=== PATIENT | male | born 1980 | race Caucasian/White ===

== ENCOUNTER 2023-01-13 14:38 | Outpatient (CLI) | payer BC, SELFPAY | END 2023-01-13 14:39 | disposition home or self-care (01) | LOC: FRMREF 14:39 | PROVIDERS: PCP Family Medicine; Visit Provider Family Medicine | DX: Z01.810 Encounter for preprocedural cardiovascular examination (principal) | CPT/HCPCS: 80048 ==

== ENCOUNTER 2023-01-15 07:43 | Outpatient (CLI) | payer BC, SELFPAY ==
--- NOTE | 2023-01-15 07:55 | W.ANESCHARGE ---
Anesthesia Charges Start Date/Time Anesthesia Start Date: 01/15/23 Anesthesia Start Time: 08:15 Stop Date/Time Anesthesia Stop Date: 01/15/23 Anesthesia Stop Time: 08:38
--- NOTE | 2023-01-15 08:40 | W.ANESCHARGE ---
Anesthesia Charges Start Date/Time Anesthesia Start Date: 01/15/23 Anesthesia Start Time: 08:15 Stop Date/Time Anesthesia Stop Date: 01/15/23 Anesthesia Stop Time: 08:38
== END 2023-01-15 07:44 | disposition home or self-care (01) ==
LOC: OP CLINIC 07:43
PROVIDERS: PCP Family Medicine; Visit Provider Internal Medicine
DX: Z12.11 Encounter for screening for malignant neoplasm of colon (principal); Z80.0 Family history of malignant neoplasm of digestive organs
CPT/HCPCS: 00812; 45378; J2704

== ENCOUNTER 2023-08-11 16:30 | Outpatient (RCR) | payer BC, SELFPAY | END 2023-08-12 07:21 | disposition home or self-care (01) | PROVIDERS: PCP Family Medicine; Visit Provider Internal Medicine | DX: M54.50 Low back pain, unspecified (principal); R25.2 Cramp and spasm; Z51.89 Encounter for other specified aftercare | CPT/HCPCS: 97012; 97035; 97110; 97140; 97161 ==

== ENCOUNTER 2024-03-28 15:25 | Outpatient (CLI) | payer BC, SELFPAY | END 2024-03-28 15:26 | disposition home or self-care (01) | LOC: LKVREF 15:26 | PROVIDERS: PCP Family Medicine; Visit Provider Otolaryngology | DX: G25.81 Restless legs syndrome (principal) | CPT/HCPCS: 82728 ==

== ENCOUNTER 2024-04-11 15:09 | Outpatient (CLI) | payer BC, SELFPAY ==
--- NOTE | 2024-04-26 08:31 | W.PM.SLEEP ---
Sleep Study Details Details Interpreting Provider: Alexa Date of Sleep Study: 04/11/24 Sleep Study Details: STUDY TYPE:? Home unattended ? BMI:? Not recorded ORDERING PROVIDER:? Alexa INDICATION: Concerns about sleep apnea ? SLEEP SUMMARY:? 394 minutes monitored RESPIRATORY SUMMARY:? AHI 2.3, low oxygen 88, 0.1% of study oxygen less than 90%, snoring 87.4% PERIODIC LIMB MOVEMENTS OF SLEEP:? Not record CARDIAC:? Range 52-111, mean 65 IMPRESSION:? This study is not demonstrate clinically significant obstructive sleep apnea. If sleep disorder is strongly suspected would recommend an in-lab study. RECOMMENDATION: []
== END 2024-04-11 15:10 | disposition home or self-care (01) ==
PROVIDERS: PCP Family Medicine; Visit Provider Otolaryngology
DX: G47.30 Sleep apnea, unspecified (principal); G47.10 Hypersomnia, unspecified; R06.83 Snoring
CPT/HCPCS: 95806

== ENCOUNTER 2024-05-16 20:09 | Outpatient (CLI) | payer BC, SELFPAY ==
--- NOTE | 2024-05-30 09:30 | W.PM.SLEEP ---
Sleep Study Details Details Interpreting Provider: Alexa Date of Sleep Study: 05/16/24 Sleep Study Details: STUDY TYPE:? Hospital-based attended ? BMI:? 24.4 ORDERING PROVIDER:? Alexa INDICATION:? Concerns about sleep apnea ? SLEEP SUMMARY:? 228.5 minutes total sleep time RESPIRATORY SUMMARY:? Mean oxygen awake 95 asleep 94 minimum 87 0.7 minutes oxygen between 80 and 88% AHI 11, supine 12.7, nonsupine 8.9 REM AHI in the supine position with 16.8 PERIODIC LIMB MOVEMENTS OF SLEEP:? Index 50.9 index with arousal 0 CARDIAC:? Awake 68, asleep 66. No arrhythmias noted IMPRESSION:? Frequent periodic limb movements but none associated with arousal. 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
== END 2024-05-16 20:10 | disposition home or self-care (01) ==
LOC: SLEEP 20:10
PROVIDERS: PCP Family Medicine; Visit Provider Otolaryngology
DX: G47.33 Obstructive sleep apnea (adult) (pediatric) (principal); G47.69 Other sleep related movement disorders
CPT/HCPCS: 95810

== ENCOUNTER 2025-09-17 09:28 | Outpatient (CLI) | payer BC, SELFPAY | END 2025-09-17 09:29 | disposition home or self-care (01) | LOC: FRMREF 09:30 | PROVIDERS: PCP Family Medicine; Visit Provider Physician Assistant Medical | DX: R41.89 Other symptoms and signs involving cognitive functions and awareness (principal); R53.83 Other fatigue | CPT/HCPCS: 80053 ==

== ENCOUNTER 2025-09-24 14:44 | Outpatient (CLI) | payer BC, SELFPAY ==
--- NOTE | 2025-09-24 15:00 | CRLHL7_ITS ---
For Patients: As a result of the Century Cures Act, medical imaging exams and procedure reports are released immediately into your electronic medical record. You may view this report before your referring provider. If you have questions, please contact your health care provider. INDICATION: Elevated LFTs COMPARISON: none TECHNIQUE: Real time jacobs scale imaging and color Doppler analysis was performed of the right upper quadrant. FINDINGS: The patient`s liver is of normal size and has uniform echogenicity. There is a normal appearance of the hepatic IVC and proximal abdominal aorta. There is no evidence of ascites. The gallbladder is of normal size and there is no evidence of intraluminal stones or sludge. The gallbladder wall measures 1.6 mm in thickness. The common bile duct is of normal size and measures 2.7 mm in diameter at the level of the kathryn hepatis. The pancreas appears normal. There is no evidence of a stone or hydronephrosis within the right kidney. The right kidney measures 11.7 cm in length. IMPRESSION: Normal right upper quadrant ultrasound. Dictated by Km Moore MD @ 09/24/2025 4:49:29 PM (Electronically Signed)
== END 2025-09-24 14:45 | disposition home or self-care (01) ==
LOC: US 14:44
PROVIDERS: PCP Family Medicine; Visit Provider Family Medicine
DX: R74.8 Abnormal levels of other serum enzymes (principal)
CPT/HCPCS: 76705

== ENCOUNTER 2025-10-03 08:41 | Outpatient (CLI) | payer BC, SELFPAY | END 2025-10-03 08:42 | disposition home or self-care (01) | LOC: NFLDREF 10-09 09:32 | PROVIDERS: PCP Family Medicine; Referring Provider Family Medicine; Visit Provider Family Medicine | DX: Z13.1 Encounter for screening for diabetes mellitus (principal); R74.8 Abnormal levels of other serum enzymes; Z13.6 Encounter for screening for cardiovascular disorders | CPT/HCPCS: 80061; 86703; 86706; 86803; 87340 ==

== ENCOUNTER 2025-10-18 13:40 | Outpatient (CLI) | payer BC, SELFPAY | END 2025-10-18 13:41 | disposition home or self-care (01) | LOC: FRMREF 13:42 | PROVIDERS: PCP Family Medicine; Visit Provider Family Medicine | DX: R74.8 Abnormal levels of other serum enzymes (principal) | CPT/HCPCS: 80076 ==